=== PATIENT | female | born 1955 | race African-American/Black ===

== ENCOUNTER 2016-11-28 00:28 | Observation (INO) | payer BC, OTHER ==
[~2016-11-28] VITALS: Ht 175.3 cm; Wt 59.4 kg
--- NOTE | ~2016-11-28 | HC ---
[facility] [place] [address] CONSULTATION Name: BREANNA DANGELO [id number] Admission: 11/28/16 Attend Phys: Mello Barkley MD Discharge: 11/28/16 Date of : 59 Report #: [id number] THIS REPORT FOR: //name// CC: Mello Driscoll DATE OF SERVICE: 11/28/2016 REASON FOR CONSULTATION: Nosebleed. 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 Cm Tam. She presented to the Emergency Room in the middle of the night with acute epistaxis. This has been going on for several hours. It required a nasal packing with a Rhino Rocket. She continued to have some oozing posteriorly down her pharynx despite of the packing. She was kept in the hospital for observation. She is no longer bleeding. She is stable and feels reasonably good. PAST MEDICAL HISTORY: Autoimmune vasculitis as above. MEDICATIONS: 1. Methotrexate weekly. 2. Prednisone 10 mg daily. 3. Keflex 500 mg daily. ALLERGIES: DOXYCYCLINE. SOCIAL HISTORY: Single, works at [employer]. PHYSICAL EXAMINATION: GENERAL: Middle-aged female in no acute distress. EARS: Right: Mild hemotympanum, but no signs of infection. Left: Normal tympanic membrane and ear canal. NOSE: Packing in the right side of the nose managing bleeding, left prominent vessels of nasal septum. ORAL: Normal mucosa. No posterior bleeding noted. NECK: Mild adenopathy. LABORATORY: Hemoglobin 11.9, platelet count 180. Coagulation studies: Normal PT and PTT, markedly elevated fibrinogen. Chem profile reveals mild elevation of the alkaline phosphatase, reduced albumin and elevated AST and glucose. ASSESSMENT: 1. Acute epistaxis managed with nasal packing. 2. Autoimmune vasculitis which may be the source of the bleeding. [facility] [address] [place] [address] CONSULTATION Name: BREANNA DANGELO Cameron Room #: 312-P [facility].#: [id number] Admission: 11/28/16 Attend Phys: Mello Barkley MD Discharge: 11/28/16 Date of : 59 Report #: [id number] RECOMMENDATION: 1. Continue nasal packing until Wednesday when she will see me in after removal. 2. Increase cephalexin 500 mg t.i.d. while packing is in place. 3. Tylenol or Tylenol hydrocodone for pain. By: [id number] Jesús Soriano MD /nt
[~2016-11-28 00:28] MED LIST: AVELOX 400 MG400 MG PO; BACTRIM DS TAB1 EACH PO; CIPRO250 M1 PO; CLARINEX5 MG PO; COMPAZINE10 M1 PO; D-20002000 UNIT PO; IBUPROFEN 200200 M1 PO; IBUPROFEN 600600 M1 PO; IRON325 PO; LISINOPRIL10 MG PO; LOPERAMIDE 2 MG2 M1 PO; METHOTREXATE 22.5 MG PO; MILLIPRED DP5 M1 PO; NORCO 5-325 TA1 EACH PO; PREDNISONE 5 MG5 M1 PO; SENNA S TABLET1 EACH
[2016-11-28 00:42] VITALS: BP 110/71
[2016-11-28] MEDS ORDERED: VITAMIN D2000 UNIT PO (00:49)
[2016-11-28] MEDS ORDERED: PREDNISONE 5 MG5 MG PO (00:49)
[2016-11-28 05:04] VITALS: BP 114/72
[2016-11-28 05:12] LABS: ABSOLUTE NEUTROPHILS 3.5 thou/uL (1.4-8.2); BASOPHILS 0.6 % (0.0-2.0); EOSINOPHILS 1.4 % (0.0-3.0); HEMATOCRIT 37.5 % (37.0-47.0); HEMOGLOBIN 11.9 gm/dL (12.0-15.0); LYMPHOCYTES 29.4 % (24.0-44.0); MCH 25.6 pg (26.0-34.0); MCHC 31.7 g/dL (28.0-37.0); MCV 80.6 fL (80.0-100.0); MONOCYTES 5.8 % (1.0-8.0); POLYS 62.8 % (36.0-66.0); RBC 4.65 mil/uL (4.20-5.00); RDW 15.7 % (10.5-14.5); WBC 5.5 thou/uL (4.0-11.0)
[2016-11-28 05:14] LABS: MANUAL DIFF NO
[2016-11-28 05:20] LABS: CALCIUM 9.4 mg/dL (8.5-10.1); CREATININE 0.9 mg/dL (0.6-1.0); POTASSIUM 3.7 mmol/L (3.5-5.1)
[2016-11-28 05:35] VITALS: BP 126/69
[2016-11-28 05:45] LABS: LARGE PLATELETS RARE; PLATELET COUNT 180 thou/uL (150-400)
[2016-11-28 07:23] VITALS: BP 121/67
[2016-11-28] MEDS ORDERED: KEFLEX500 MG PO (12:08)
[2016-11-28 12:23] VITALS: BP 121/67
== END 2016-11-28 13:09 | disposition home or self-care (01) ==
LOC: ER 00:28 → EROBS 04:32 → 3N 05:04
PROVIDERS: Emergency Medicine
DX: R04.0 Epistaxis (principal); I77.6 Arteritis, unspecified; J18.9 Pneumonia, unspecified organism
CPT/HCPCS: 23023; 23024

== ENCOUNTER 2017-10-21 20:38 | Emergency (ER) | payer BC, OTHER ==
[~2017-10-21] VITALS: Ht 175.3 cm; Wt 59.0 kg
[~2017-10-21 20:38] MED LIST changes: +KEFLEX500 MG PO; +PREDNISONE 5 MG5 MG PO; +VITAMIN D2000 UNIT PO
[2017-10-21] MEDS ORDERED: CEPHALEXIN500 MG PO (20:54)
[2017-10-21] MEDS ORDERED: NAPROSYN500 MG PO (22:00)
[2017-10-21] MEDS ORDERED: NORFLEX100 MG PO (22:00)
== END 2017-10-21 22:18 | disposition home or self-care (01) ==
LOC: ER 20:38
DX: S16.1XXA Strain of muscle, fascia and tendon at neck level, initial encounter (principal); G44.209 Tension-type headache, unspecified, not intractable; Z87.01 Personal history of pneumonia (recurrent); Z88.1 Allergy status to other antibiotic agents; Z88.5 Allergy status to narcotic agent; V89.2XXA Person injured in unspecified motor-vehicle accident, traffic, initial encounter; Y93.89 Activity, other specified; Y92.89 Other specified places as the place of occurrence of the external cause; Y99.8 Other external cause status

== ENCOUNTER → 2018-03-31 | Outpatient (CLI) | payer BC, OTHER ==
[~2018-03-31] MED LIST changes: +CEPHALEXIN500 MG PO; +NAPROSYN500 MG PO; +NORFLEX100 MG PO
== END ==
LOC: RAD 16:08
DX: J98.4 Other disorders of lung (principal); R07.82 Intercostal pain

== ENCOUNTER 2019-02-11 09:58 | Emergency (ER) | payer BC, OTHER ==
[~2019-02-11] VITALS: Ht 175.3 cm; Wt 63.5 kg
[2019-02-11] MEDS ORDERED: PROLIA60 MG/1 ML SUBQ (10:23)
[2019-02-11 10:29] LABS: URINE BILIRUBIN NEGATIVE (Negative); URINE BLOOD TRACE (Negative); URINE CLARITY CLEAR; URINE COLOR YELLOW; URINE GLUCOSE-RANDOM* NEGATIVE (Negative); URINE KETONES NEGATIVE (Negative); URINE LEUKOCYTES-REFLEX NEGATIVE (Negative); URINE NITRITE-REFLEX NEGATIVE (Negative); URINE PROTEIN (DIPSTICK) 1+ (Negative); URINE SPECIFIC GRAVITY 1.015 (1.005-1.035); URINE UROBILINOGEN 0.2 E.U./dl (0.2-1.0)
[2019-02-11 10:37] LABS: BASOPHILS 0.4 % (0.0-2.0); HEMATOCRIT 36.5 % (37.0-47.0); LYMPHOCYTES 14.8 % (24.0-44.0); MCH 26.1 pg (26.0-34.0); MCHC 32.9 g/dL (28.0-37.0); MCV 79.5 fL (80.0-100.0); MONOCYTES 8.5 % (1.0-8.0); PLATELET COUNT 164 thou/uL (150-400); POLYS 75.3 % (36.0-66.0); RBC 4.59 mil/uL (4.20-5.00); WBC 5.3 thou/uL (4.0-11.0)
[2019-02-11 10:44] LABS: ANION GAP 8 mmol/L (7-16); BUN 12 mg/dL (7-18); CALCIUM 9.6 mg/dL (8.5-10.1); CHLORIDE 101 mmol/L (98-107); CO2 28 mmol/L (21-32); CREATININE 0.9 mg/dL (0.6-1.0); GLUCOSE 100 mg/dL (74-106); SODIUM 137 mmol/L (136-145)
[2019-02-11 10:48] LABS: SQUAMOUS 0-3 Few /LPF (0-3); URINE RBC 0-2 Rare /HPF (0-2)
[2019-02-11 10:49] LABS: BACTERIA-REFLEX 1-9 Few /HPF (None Seen); CASTS None Seen /LPF (None Seen); CRYSTALS None Seen /LPF (None Seen); URINE WBC-REFLEX None Seen /HPF (0-5)
[2019-02-11 10:54] LABS: ALBUMIN 3.9 g/dL (3.4-5.0); LIPASE 123 U/L (73-393); SGOT 46 U/L (15-37); SGPT 24 U/L (30-65); TOTAL BILIRUBIN 0.5 mg/dL (<0.1-1.0); TOTAL PROTEIN 7.9 g/dL (6.4-8.2); TROPONIN-I <0.06 ng/mL (<0.06)
[2019-02-11] MEDS ORDERED: ONDANSETRON ODT8 MG PO (11:10)
[2019-02-11 12:16] VITALS: BP 125/68
--- NOTE | 2019-02-12 11:42 | EKG ---
[place] [address] [facility] [place] [address] ELECTROCARDIOGRAM REPORT Name: BREANNA DANEGLO [id number] Admission: 02/11/19 Attend Phys: Discharge: 02/11/19 Date of : 59 Report #: [id number] THIS REPORT FOR: //name// [facility] ED Test Date: 2019-02-11 Test Time: 10:31:52 Pat Name: BREANNA DANGELO Department: Room: Gender: F Social Insurance Specialist: [facility] : 1955 Requested By: Jett Cobian Order Number: [id number] MD: Omar Ko Measurements Intervals Reading Rate: 64 P: 54 MA: 145 QRS: 12 QRSD: 80 T: 50 QT: 437 QTc: 451 Interpretive Statements Sinus rhythm Abnormal R-wave progression, early transition Compared to ECG 07/12/2010 13:16:12 No significant changes Electronically Signed On 02-12-2019 11:42:43 CDT by Omar Ko [email or web address] <ELECTRONICALLY SIGNED> By: Omar Ko MD 02/12/19 1142 D: 08/1030 30 Omar Ko MD /RIGO
== END 2019-02-11 12:19 | disposition home or self-care (01) ==
LOC: ER 09:58
PROVIDERS: Emergency Medicine
DX: R11.2 Nausea with vomiting, unspecified (principal); T40.4X5A Adverse effect of other synthetic narcotics, initial encounter; Z90.49 Acquired absence of other specified parts of digestive tract; Z88.8 Allergy status to other drugs, medicaments and biological substances; Z88.5 Allergy status to narcotic agent; Z91.018 Allergy to other foods; Z88.2 Allergy status to sulfonamides; Z88.6 Allergy status to analgesic agent; Y92.89 Other specified places as the place of occurrence of the external cause

== ENCOUNTER → 2019-03-24 | Outpatient (CLI) | payer BC, OTHER ==
[~2019-03-24] MED LIST changes: +ONDANSETRON ODT8 MG PO; +PROLIA60 MG/1 ML SUBQ
== END ==
LOC: ULTRA 08:24
DX: R10.2 Pelvic and perineal pain (principal); Z88.8 Allergy status to other drugs, medicaments and biological substances; Z88.2 Allergy status to sulfonamides

== ENCOUNTER → 2019-08-23 | Outpatient (CLI) | payer BC, OTHER | LOC: RAD 08:56 | DX: Z12.31 Encounter for screening mammogram for malignant neoplasm of breast (principal) ==

== ENCOUNTER → 2020-02-14 | Outpatient (CLI) | payer OTHER ==
[2020-02-14 09:19] LABS: ABSOLUTE NEUTROPHILS 4.6 thou/uL (1.4-8.2); BASOPHILS 0.5 % (0.0-2.0); EOSINOPHILS 0.6 % (0.0-3.0); HEMATOCRIT 41.5 % (37.0-47.0); HEMOGLOBIN 13.2 gm/dL (12.0-15.0); MCH 26.2 pg (26.0-34.0); MCHC 31.8 g/dL (28.0-37.0); MCV 82.3 fL (80.0-100.0); MONOCYTES 5.5 % (1.0-8.0); PLATELET COUNT 209 thou/uL (150-400); POLYS 79.4 % (36.0-66.0); RBC 5.04 mil/uL (4.20-5.00); WBC 5.8 thou/uL (4.0-11.0)
[2020-02-14 09:31] LABS: ALBUMIN 4.2 g/dL (3.4-5.0); CALCIUM 9.2 mg/dL (8.5-10.1); CREATININE 0.8 mg/dL (0.6-1.0); POTASSIUM 4.5 mmol/L (3.5-5.1); TOTAL BILIRUBIN 0.3 mg/dL (0.2-1.0); TOTAL PROTEIN 7.7 g/dL (6.4-8.2)
== END ==
LOC: CAT 08:09
PROVIDERS: ATTEND Specialist
DX: D25.9 Leiomyoma of uterus, unspecified (principal); R10.9 Unspecified abdominal pain; I77.6 Arteritis, unspecified